=== PATIENT | female | born 2005 | race Caucasian/White ===

== ENCOUNTER 2023-08-17 20:02 | Emergency (ER) | payer OTHER ==
[~2023-08-17] VITALS: Ht 167.6 cm; Wt 73.0 kg
[2023-08-17] MEDS: LORAZEPAM 2MG/ML INJ IM ONE (21:09)
[2023-08-17] MEDS: HALOPERIDOL LACTATE 5MG/ML VIAL IM ONE (21:10)
[2023-08-17] MEDS: DIPHENHYDRAMINE 50MG/ML VIAL IM ONE (21:10)
[2023-08-17 21:41] LABS: CLARITY URINE CLEAR (CLEAR); COLOR URINE YELLOW (YELLOW); GLUCOSE URINE NEGATIVE (NEGATIVE); KETONES URINE 2+ (NEGATIVE); LEUKOCYTE ESTERASE URINE TRACE (NEGATIVE); NITRITE URINE NEGATIVE (NEGATIVE); OCCULT BLOOD URINE 3+ (NEGATIVE); PROTEIN URINE 1+ (NEGATIVE); UROBILINOGEN URINE 0.2 E.U./dL (0.2-1.0)
[2023-08-17 21:48] LABS: BASOPHILS % 0.4 % (0.0-2.0); EOSINOPHILS % 0.1 % (0.0-5.0); HEMATOCRIT. 41.5 % (36.0-48.0); HEMOGLOBIN. 13.7 g/dL (12.0-16.0); MEAN CORPUSCULAR HEMOGLOBIN 27.7 pg (28.0-32.0); MEAN CORPUSCULAR VOLUME 84.1 fL (81.0-99.0); MEAN PLATELET VOLUME 7.9 fl (7.4-10.4); MONOCYTES % 7.9 % (2.0-8.0); NEUTROPHILS % 81.6 % (40.0-76.0); PLATELET 350 x1000/uL (130-400); RED BLOOD CELL COUNT 4.94 mill/uL (4.2-5.4); RED CELL DISTRIBUTION WIDTH 17.7 % (11.6-14.6); WHITE BLOOD COUNT 16.6 x1000/uL (4.5-11.0)
[2023-08-17 21:54] LABS: BACTERIA URINE 1+; RBC URINE 15-25 /hpf (0-2); SQUAMOUS EPITHELIAL CELL URINE 1+ /lpf (RARE/1+); WBC URINE 0-2 /hpf (0-2)
[2023-08-17 21:55] LABS: *AMPHETAMINES SCREEN URINE NEGATIVE (NEGATIVE); *BARBITURATES SCREEN URINE NEGATIVE (NEGATIVE); *BENZODIAZEPINES SCREEN URINE PRESUMPTIVE POSITIVE (NEGATIVE); *COCAINE SCREEN URINE NEGATIVE (NEGATIVE); CANNABINOID URINE SCREEN PRESUMPTIVE POSITIVE (NEGATIVE); ECSTASY MDMA SCREEN URINE NEGATIVE (NEGATIVE); METHADONE URINE SCREEN Neg (NEGATIVE); OPIATES URINE SCREEN NEGATIVE (NEGATIVE); PHENCYCLIDINE URINE SCREEN NEGATIVE (NEGATIVE)
[2023-08-17 22:04] LABS: HCG SCREEN NEGATIVE
[2023-08-17 22:07] LABS: ACETAMINOPHEN < 2 ug/mL (10-30); ALANINE AMINOTRANSFERASE 12 IU/L (10-49); ALBUMIN 5.5 g/dL (3.2-4.8); ASPARTATE AMINOTRANSFERASE 33 IU/L (<34); BILIRUBIN TOTAL 1.4 mg/dL (0.1-1.0); CALCIUM 9.9 mg/dL (8.7-10.4); CARBON DIOXIDE 20 mEq/L (21-32); CHLORIDE 107 mEq/L (98-107); CREATININE 1.1 mg/dL (0.6-1.0); ETHANOL BLOOD < 10 mg/dL (<10); GLUCOSE 75 mg/dL (70-105); POTASSIUM 3.4 mEq/L (3.5-5.1); PROTEIN TOTAL 8.9 g/dL (6.0-8.3); SODIUM 139 mEq/L (136-145); UREA NITROGEN BLOOD 11 mg/dL (9-23)
[2023-08-18] MEDS: LORAZEPAM 1MG TABLET PO ONE (07:30)
[2023-08-18] MEDS: LORAZEPAM 2MG/ML INJ IM ONE ×2 (07:45→13:30)
[2023-08-18] MEDS ORDERED: OLANZAPINE 10 MG/VIAL IM ONE (07:45)
[2023-08-18] MEDS: OLANZAPINE 10 MG/VIAL IM NR (10:00)
[2023-08-18] MEDS: DIPHENHYDRAMINE 50MG/ML VIAL IM PRN (10:09)
[2023-08-18] MEDS: MIDAZOLAM HCL 2 MG/2 ML VIAL IM ONE (16:00)
[2023-08-18] MEDS: HALOPERIDOL LACTATE 5MG/ML VIAL IM ONE (16:00)
[2023-08-19] MEDS: DIPHENHYDRAMINE 50MG/ML VIAL IM PRN ×2 (01:38→23:45)
[2023-08-19] MEDS: OLANZAPINE 10 MG/VIAL IM ONE (03:59)
[2023-08-19] MEDS: DIPHENHYDRAMINE 50MG/ML VIAL IM ONE (04:45)
[2023-08-19] MEDS: MIDAZOLAM HCL 2 MG/2 ML VIAL IM ONE ×3 (04:57→23:45)
[2023-08-19] MEDS: HALOPERIDOL LACTATE 5MG/ML VIAL IM ONE ×3 (04:57→23:45)
[2023-08-19] MEDS ORDERED: DIPHENHYDRAMINE 50MG/ML VIAL IM PRN (23:30)
[2023-08-20 03:00] VITALS: O2SAT 96
[2023-08-20] MEDS: OLANZAPINE 5MG TABLET PO SCH (09:00)
[2023-08-21 00:30] VITALS: BP 156/79; PULSE 92; RESP 18; TEMP 98.4
== END 2023-08-21 01:01 ==
LOC: ER 20:02
DX: R45.6 Violent behavior (principal); F20.9 Schizophrenia, unspecified; F12.10 Cannabis abuse, uncomplicated; Z20.822 Contact with and (suspected) exposure to COVID-19
CPT/HCPCS: 80053; 80305; 81003; 80307; 80329; 80320; 84703; 85025; 36415; 93005; 96372 ×3; 99291; 87426; J1200 ×3; J1630 ×3; J2060 ×2; J3490 ×2; J2250 ×2; G0480